=== PATIENT | male | born 2000 | race Caucasian/White ===

== ENCOUNTER 2020-12-01 11:47 | Emergency (ER) | payer OTHER, SELFPAY ==
[2020-12-01] VITALS (14 sets, daily range): BP systolic 127–160; BP diastolic 67–82; PULSE 50–109; RESP 12–23; TEMP 37.1; O2SAT 93–100
--- NOTE | 2020-12-01 11:51 | ECG_ITS ---
Measurements Intervals [place] Rate: 61 P: 56 NM: 139 QRS: 56 QRSD: 98 T: 31 QT: 374 QTc: 379 Interpretive Statements SINUS RHYTHM WITH SINUS ARRHYTHMIA NORMAL ECG Electronically Signed On 12-01-2020 12:37:22 CDT by Red Mcdaniel D.O.
[2020-12-01 12:03] LABS: Basophils Absolute Auto 0.1 K/mm3 (0.0-0.1); Basophils Percent Auto 0.6 % (0.2-1.2); Eosinophils Absolute Auto 0.1 K/mm3 (0-0.3); Hematocrit 45.7 % (42.0-52.0); Hemoglobin 16.3 g/dL (14.0-18.0); Immature Granulocyte Absolute 0.03 K/mm3 (0.00-0.031); Immature Granulocyte Percent A 0.4 % (0-0.5); Lymphocytes Absolute Auto 1.98 K/mm3 (0.9-3.2); Lymphocytes Percent Auto 25.3 % (18.3-44.2); Mean Corpuscular HGB Conc 35.7 g/dl (32-36); Mean Corpuscular Hemoglobin 30.9 pg (26-34); Mean Corpuscular Volume 86.7 fl (80-100); Mean Platelet Volume 9.5 fl (7.4-10.4); Monocytes Absolute Auto 0.4 K/mm3 (0.1-0.6); Monocytes Percent Auto 4.9 % (2.6-8.5); Neutrophils Absolute Auto 5.3 K/mm3 (1.3-6.7); Neutrophils Percent Auto 67.8 % (45.5-73.1); Platelet Count Result 287 k/mm3 (150-375); Red Blood Count 5.27 M/mm3 (4.6-6.20); Red Cell Distribution Width 11.9 % (11.5-14.5); White Blood Count 7.8 K/mm3 (4.5-10.0)
[2020-12-01 12:15] LABS: Add Urine Microscopic? NO; Appearance Urine Clear (Clear); Bilirubin Urine Negative (Negative); Blood Urine Negative (Negative); Color Urine Colorless (Yellow); Glucose Urine UA Negative (Negative); Ketones Urine Negative (Negative); Leukocyte Esterase Ur Negative LEU/UL (Negative); Nitrate Urine Negative (Negative); Protein Urine Negative (Negative); Urobilinogen Urine Negative mg/dL (<2.0)
[2020-12-01 12:16] LABS: Alanine Aminotransferase 16 U/L (4-50); Alkaline Phosphatase 67 U/L (38-126); Anion Gap 13 mmol/L (8-16); Aspartate Amino Transferase 31 U/L (17-59); Bilirubin,Total 1.4 mg/dL (0.2-1.3); Blood Urea Nitrogen 14 mg/dL (9-20); Calcium 9.7 mg/dL (8.4-10.2); Carbon Dioxide 21 mmol/L (22-30); Chloride 106 mmol/L (98-107); Estimated CRCL calculation 120 ml/min; Estimated Glomerular Filt Rate > 60; Glucose 101 mg/dL (75-110); Potassium 4.1 mmol/L (3.4-5.0); Sodium 140 mmol/L (137-145)
[2020-12-01 12:16] LABS: Specific Grav Ur 1.002 (1.001-1.035)
--- NOTE | 2020-12-01 12:18 | ED.GENADULT ---
HPI - General Adult General Chief complaint: Weakness Stated complaint: weakness, shaking Time Seen by Provider: 12/01/20 11:51 Source: patient History of Present Illness HPI narrative: Patient is a 20 y/o male complaining of severe weakness, light-headedness starting 2 hours ago. There is no known alleviating or exacerbating factor. However, his symptoms improved somewhat. He has no pain. He also has some tingling sensation in his hands and feet. He has no focal weakness. Related Data Allergies Allergy/AdvReac Type Severity Reaction Status Date / Time azithromycin [From Zithromax] Allergy Unknown Verified 12/01/20 11:54 Review of Systems Constitutional: Constitutional: Denies chills, Denies fever(s), Denies headache(s) and Reports weakness Eyes: Eyes: Denies blurry vision ENT: Denies headache(s) and Denies neck pain Cardiovascular: Cardiovascular: Denies chest pain and Denies dyspnea Respiratory: Respiratory: Denies cough and Denies dyspnea Gastrointestinal: Gastrointestinal: Denies abdominal pain, Denies diarrhea, Denies nausea and Denies vomiting Genitourinary: Genitourinary: Denies hematuria and Denies dysuria Musculoskeletal: Musculoskeletal: Denies back pain and Denies neck pain Neurologic: Reports dizziness, Denies syncope, Denies headache(s), Reports paresthesias and Denies weakness Exam Const: General: no acute distress and well developed Orientation/consciousness: oriented to person, oriented to place, oriented to time and patient oriented x3 HENMT: Head: normocephalic Ears: external ears normal General nose exam: Normal external nose present Eyes: General: appearance normal, both eyes and all related structures Conjunctivae: conjunctivae normal Neck: Neck: normal visual inspection and full ROM Chest: Chest palpation & inspection: normal inspection of the chest and no tenderness Resp: Effort & Inspection: normal respiratory effort Auscultation: clear to auscultation bilaterally Cardio: Rate: regular rate Rhythm: regular rhythm GI: GI Palp: No abdominal tenderness and Yes Soft to palpation Skin: General skin exam: normal color and turgor normal Neuro: General: oriented to person, oriented to place, oriented to time and patient oriented x3 Cranial nerves: Yes CN's II-XII intact bilaterally Cognition (Neuro): normal cognition Speech: normal speech Motor exam (neuro): 5/5 motor strength present throughout Sensory Exam: normal sensation Coordination: [id number] test normal and [id number] test normal Extrem: General: normal to inspection, full ROM and no pedal edema Psych: Appearance: grossly normal Mental Status: mental status grossly normal Affect: normal affect Course Vital Signs Vital signs: Vital Signs Temperature 37.1 C 12/01/20 11:51 Pulse Rate 109 H 12/01/20 11:51 Respiratory Rate 14 12/01/20 11:51 Blood Pressure 160/82 H 12/01/20 11:51 Pulse Oximetry 100 12/01/20 11:51 Temperature 37.1 C 12/01/20 11:51 Pulse Rate 56 L 12/01/20 13:31 Respiratory Rate 17 12/01/20 13:31 Blood Pressure 127/67 12/01/20 13:31 Pulse Oximetry 93 12/01/20 13:31 Medical Decision Making Vital Signs Vital Signs: Vital Signs Temperature 37.1 C 12/01/20 11:51 Pulse Rate 109 H 12/01/20 11:51 Respiratory Rate 14 12/01/20 11:51 Blood Pressure 160/82 H 12/01/20 11:51 Pulse Oximetry 100 12/01/20 11:51 Temperature 37.1 C 12/01/20 11:51 Pulse Rate 56 L 12/01/20 13:31 Respiratory Rate 17 12/01/20 13:31 Blood Pressure 127/67 12/01/20 13:31 Pulse Oximetry 93 12/01/20 13:31 Lab Data Result diagrams: 12/01/20 11:55 12/01/20 11:55 Labs: Lab Results 12/01/20 12/01/20 12/01/20 Range/Units 11:55 11:55 11:55 WBC 7.8 (4.5-10.0) K/mm3 RBC 5.27 (4.6-6.20) M/mm3 Hgb 16.3 (14.0-18.0) g/dL Hct 45.7 (42.0-52.0) % MCV 86.7 (80-100) fl MCH 30.9 (26-34) pg MCHC 35.7 (32-3
== END 2020-12-01 13:45 | disposition home or self-care (01) ==
PROVIDERS: Emergency Provider Emergency Medicine
DX: R53.1 Weakness (principal); F41.9 Anxiety disorder, unspecified
CPT/HCPCS: 36415; 80053; 81003; 84443; 85025; 93005; 99283